=== PATIENT | female | born 1985 | race Caucasian/White ===

== ENCOUNTER 2016-06-17 17:44 | Outpatient (CLI) | payer OTHER | END 2016-06-17 18:40 | disposition home or self-care (01) | LOC: OBC SRH 17:44 → OB SRH 17:44 → OBC SRH 18:40 | DX: O36.8120 Decreased fetal movements, second trimester, not applicable or unspecified (principal); O99.89 Other specified diseases and conditions complicating pregnancy, childbirth and the puerperium; R10.2 Pelvic and perineal pain; Z3A.25 25 weeks gestation of pregnancy ==

== ENCOUNTER 2016-06-18 12:59 | Outpatient (CLI) | payer OTHER | END 2016-06-18 13:26 | disposition home or self-care (01) | LOC: OBC SRH 12:59 → OB SRH 13:26 → OBC SRH 13:26 | DX: O46.8X2 Other antepartum hemorrhage, second trimester (principal); Z3A.24 24 weeks gestation of pregnancy ==

== ENCOUNTER → 2016-08-29 19:49 | Outpatient (CLI) | payer OTHER ==
[~2016-08-29 19:49] MED LIST: PERCOCET1 TA1 PO
== END | disposition home or self-care (01) ==
LOC: OBC SRH 19:49 → OB SRH 20:08 → OBC SRH 20:50
PROC: 4A0HXCZ Measurement of Products of Conception, Cardiac Rate, External Approach (ICD-10-PCS; principal; 2016-08-29)
DX: O47.03 False labor before 37 completed weeks of gestation, third trimester (principal); Z3A.34 34 weeks gestation of pregnancy

== ENCOUNTER 2016-09-19 07:41 | Outpatient (CLI) | payer OTHER | END 2016-09-19 13:00 | disposition home or self-care (01) | LOC: OBC SRH 07:41 → OB SRH 07:45 → OBC SRH 13:00 | PROC: 4A1HXCZ Monitoring of Products of Conception, Cardiac Rate, External Approach (ICD-10-PCS; principal; 2016-09-19) | DX: O47.1 False labor at or after 37 completed weeks of gestation (principal); Z3A.37 37 weeks gestation of pregnancy ==

== ENCOUNTER 2016-09-24 17:57 | Outpatient (CLI) | payer OTHER | END 2016-09-24 19:05 | disposition home or self-care (01) | LOC: OBC SRH 17:57 → OB SRH 17:59 → OBC SRH 19:05 | PROC: 4A0HXCZ Measurement of Products of Conception, Cardiac Rate, External Approach (ICD-10-PCS; principal; 2016-09-24) | DX: O36.8130 Decreased fetal movements, third trimester, not applicable or unspecified (principal); O47.1 False labor at or after 37 completed weeks of gestation; Z3A.38 38 weeks gestation of pregnancy ==

== ENCOUNTER 2016-10-04 07:05 | Inpatient (IN) | payer OTHER ==
[~2016-10-04] VITALS: Ht 154.9 cm; Wt 94.8 kg
[2016-10-04 16:50] VITALS: BP 131/69
[2016-10-04 17:03] VITALS: BP 118/72
[2016-10-04 17:16] VITALS: BP 127/64
[2016-10-04 17:30] VITALS: BP 132/67
[2016-10-04 17:46] VITALS: BP 130/75
[2016-10-04 21:14] VITALS: BP 151/68
[2016-10-05] VITALS: BP 116/69
[2016-10-05 07:46] VITALS: BP 105/63
--- NOTE | 2016-10-05 10:56 | Provider's Discharge Care Plan ---
Problem, Goal, Plan Problem List 1. Vaginal delivery with potential for hemorrhage Goals: Improve disease control Instructions: Follow up as needed
--- NOTE | 2016-10-05 10:56 | Provider's Discharge Care Plan ---
Problem, Goal, Plan Problem List 1. Vaginal delivery with potential for hemorrhage Goals: Improve disease control Instructions: Follow up as needed
[2016-10-05 17:30] VITALS: BP 114/69
[2016-10-05] MEDS ORDERED: PERCOCET1 TA1 PO (18:27)
--- NOTE | 2016-10-05 18:40 | NUR ---
PATIENT DISCHARGED HOME WITH FAMILY AND NB. C/O PAIN IN LOW BACK SO MEDICATED WITH PO PAIN MEDS AND DR. HOOVER WAS HERE TO PRINT OUT RX FOR PT'S DISCHARGE. RX GIVEN TO PATIENT, AND DISCHARGE INSTRUCTIONS GIVEN AND EXPLAINED TO PATIENT, PATIENT VERBALIZES UNDERSTANDING OF DISCHARGE INSTRUCTIONS. BANDS VERIFIED WITH MOM AND BABY.
== END 2016-10-05 18:45 | disposition home or self-care (01) | DRG 560 ==
LOC: OB SRH 07:05
PROVIDERS: ADMIT Obstetrics & Gynecology
PROC: 10E0XZZ Delivery of Products of Conception, External Approach (ICD-10-PCS; principal; 2016-10-04)
DX: O77.0 Labor and delivery complicated by meconium in amniotic fluid (principal); Z3A.40 40 weeks gestation of pregnancy; Z37.0 Single live birth; O69.81X0 Labor and delivery complicated by cord around neck, without compression, not applicable or unspecified
CPT/HCPCS: 40012; 90074; 91162; 91163; 95059

== ENCOUNTER 2016-10-07 20:41 | Emergency (ER) | payer OTHER ==
--- NOTE | 2016-10-07 21:32 | ED NURSING NOTES ---
Clinical Report - Nurses [facility] [address] [place] [address] 10/07/2016 20:42 [id number] TRI[facility] Triage time 20:49 Oct 07 2016. Acuity: LEVEL 4. Chief Complaint: (Had a baby three days ago, now bilat breast pain, swelling and no drainage. Possible mastitis). 20:57 10/07/16. SEPSIS SCREEN: Sepsis Screen. Negative (no infection suspected/documented). JEREMIAH COMA SCORE: Jeremiah Coma Scale: 15- eyes open spontaneously (4); best verbal response- oriented x 4 (5); best motor response- obeys commands (6). --20:57 Felipa Flores R.N. 20:49 10/07/16. BP: 115/78 (regular adult cuff) taken on the left arm, while sitting. HR: 92. RR: 18. O2 saturation: 96% on room air. Temp: 97.9 F (oral). Pain level now: 410. --20:57 Felipa Flores R.N. Height/Length: 61 inches Per Patient. --20:51 Felipa Flores R.N.. Weight: 88.3 kg measured. BMI: 36.8. --20:53 Felipa Flores R.N. Medications None. --20:50 Felipa Flores R.N. Allergies Vicodine. --20:51 Felipa Flores R.N. History Arrived by private vehicle. Historian: patient. Accompanied by family. Primary physician (Dr Fletcher). This started today. She has had fever (100.1). Reports muscle aches. Treatment RIGHT OF WAY MANAGER: None. (Percocet 2048). PAST MEDICAL HX: Last normal menstrual period- just had baby three days ago. SOCIAL HX: Smoker- current status unknown. Occasional alcohol use; consumes wine. History of occasional drug use: marijuana. No infectious disease exposure. --20:57 Felipa Flores R.N. PROBLEMS: no known problems. ADDITIONAL SURGERIES: Kidney surgery. --20:51 Felipa Flores R.N. Interventions ID band on patient. To treatment room. --20:57 Felipa Flores R.N. PHYSICAL ASSESSMENT 20:58 10/07/16. Ambulatory to room. Patient gowned. ( Bilat breasts swollen, redness and pain at nipples). GENERAL / NEURO / PSYCH: Alert. Oriented X 4. Appears in no acute distress. HEENT: Pupils equal, round and reactive to light. No facial asymmetry noted. Mucous membranes are pink. RESPIRATORY: Respirations not labored. Chest nontender. Breath sounds within normal limits. CVS: Normal sinus rhythm noted. Capillary refill less than 2 seconds. Pulses within normal limits. GI / : Abdomen soft and nontender and normal bowel sounds. SKIN: Skin intact. Skin is warm. Normal skin turgor. --20:58 Felipa Flores R.N. NURSING PROGRESS NOTES 20:58 10/07/16. The plan of care for this patient has been created. Patient gowned. Head of bed elevated. Reassurance given. Two patient identifiers checked. Call light placed in reach. Side rails up x 1. Bed placed in lowest position. Brakes of bed on. Patient ready for evaluation- chart flagged and ED physician notified. --20:58 Felipa Flores R.N. DISPOSITION / DISCHARGE 21:40 10/07/16. BP: 123/81. HR: 94. RR: 15. O2 saturation: 98% on room air. Temp: deferred. Castanon-Moncada pain scale: 4/10. --21:41 Micki Barragan R.N. Condition at departure: improved and stable. No learning barriers present. Discharge instructions provided and reviewed with the patient. Patient verbalized understanding. Written instructions provided in Persian. The patient was discharged home and accompanied by parking meter installer. She left the Emergency Department ambulatory and via private vehicle. Congressional Representative driving. --21:41 Micki Barragan R.N. ( extensive teaching done with pt concerning blocked breast ducts and mastitis and signs and symptoms to watch for for when to return vs when to see PCP). --21:43 Micki Barragan R.N. Locked/Released at 10/07/2016 21:44 by Micki Barragan R.N.
--- NOTE | 2016-10-07 21:32 | ED CLINICAL REPORT ---
Clinical Report - Physicians/Mid Levels [facility] [address] [place] [address] 10/07/2016 20:42 Patient: MYNOR FARMER Time Seen: 20:53; initial patient contact. Arrived- By private vehicle. Historian- patient. HISTORY OF PRESENT ILLNESS Chief Complaint: SKIN RASH. This started today and is still present. It is described as painful. It has been located on the right and left breast. No cause has been identified. No recent medication. Similar symptoms previously: None. Recent medical care: Not recently seen/assessed. REVIEW OF SYSTEMS No fever, chills, nausea or vomiting. All systems otherwise negative, except as recorded above. PAST HISTORY Kidney surgery. Problems: no known problems. Surgeries: No history of previous surgery. Medications: None. Allergies: Vicodine. SOCIAL HISTORY Never smoker. Occasional alcohol use. History of drug use: marijuana. ADDITIONAL NOTES The nursing notes have been reviewed. PHYSICAL EXAM Vital Signs: 10/07/2016 20:49 BP: 115/78. HR: 92. RR: 18. O2 saturation: 96%. Temp: 97.9 F. Pain level now: 4/10. Have been reviewed as normal. Appearance: Alert. Oriented X3. No acute distress. Right Breast: Tenderness on exam. Milky nipple discharge. Mild, warm, erythematous, tender skin rash. Left Breast: Tenderness on exam. Milky nipple discharge. Mild, warm, erythematous, tender skin rash. Breast Exam: Kiln Furniture Saw Tender present ( and female RN). Normal contour. Nipples normal. Skin: Rash present on the right and left breast. The rash is erythematous. There is warmth and tenderness. Neuro: Oriented X 3. PROGRESS AND PROCEDURES Disposition: Discharged home in good condition. Condition: good. CLINICAL IMPRESSION Acute mastitis of the right and left breast associated with breast feeding. Abscess not present. INSTRUCTIONS Follow-up: Follow up with your doctor in about one day if not better. Call for an appointment. Screening today revealed the patient's blood pressure to be in the normal range. (Electronically signed by Carlos Eduardo Alvarez Dr. 10/08/2016 8:08)
--- NOTE | 2016-10-07 21:32 | ED NURSING NOTES ---
Clinical Report - Nurses [facility] [address] [place] [address] 10/07/2016 20:42 [id number] Triage time 20:49 Oct 07 2016. Acuity: LEVEL 4. Chief Complaint: (Had a baby three days ago, now bilat breast pain, swelling and no drainage. Possible mastitis). 20:57 10/07/16. SEPSIS SCREEN: Sepsis Screen. Negative (no infection suspected/documented). JEREMIAH COMA SCORE: Jeremiah Coma Scale: 15- eyes open spontaneously (4); best verbal response- oriented x 4 (5); best motor response- obeys commands (6). --20:57 Felipa Flores R.N. 20:49 10/07/16. BP: 115/78 (regular adult cuff) taken on the left arm, while sitting. HR: 92. RR: 18. O2 saturation: 96% on room air. Temp: 97.9 F (oral). Pain level now: 410. --20:57 Felipa Flores R.N. Height/Length: 61 inches Per Patient. --20:51 Felipa Flores R.N.. Weight: 88.3 kg measured. BMI: 36.8. --20:53 Felipa Flores R.N. Medications None. --20:50 Felipa Flores R.N. Allergies Vicodine. --20:51 Felipa Flores R.N. History Arrived by private vehicle. Historian: patient. Accompanied by family. Primary physician (Dr Fletcher). This started today. She has had fever (100.1). Reports muscle aches. Treatment AIRLINE RESERVATION AGENT: None. (Percocet 2048). PAST MEDICAL HX: Last normal menstrual period- just had baby three days ago. SOCIAL HX: Smoker- current status unknown. Occasional alcohol use; consumes wine. History of occasional drug use: marijuana. No infectious disease exposure. --20:57 Felipa Flores R.N. PROBLEMS: no known problems. ADDITIONAL SURGERIES: Kidney surgery. --20:51 Felipa Flores R.N. Interventions ID band on patient. To treatment room. --20:57 Felipa Flores R.N. PHYSICAL ASSESSMENT 20:58 10/07/16. Ambulatory to room. Patient gowned. ( Bilat breasts swollen, redness and pain at nipples). GENERAL / NEURO / PSYCH: Alert. Oriented X 4. Appears in no acute distress. HEENT: Pupils equal, round and reactive to light. No facial asymmetry noted. Mucous membranes are pink. RESPIRATORY: Respirations not labored. Chest nontender. Breath sounds within normal limits. CVS: Normal sinus rhythm noted. Capillary refill less than 2 seconds. Pulses within normal limits. GI / : Abdomen soft and nontender and normal bowel sounds. SKIN: Skin intact. Skin is warm. Normal skin turgor. --20:58 Felipa Flores R.N. NURSING PROGRESS NOTES 20:58 10/07/16. The plan of care for this patient has been created. Patient gowned. Head of bed elevated. Reassurance given. Two patient identifiers checked. Call light placed in reach. Side rails up x 1. Bed placed in lowest position. Brakes of bed on. Patient ready for evaluation- chart flagged and ED physician notified. --20:58 Felipa Flores R.N. DISPOSITION / DISCHARGE 21:40 10/07/16. BP: 123/81. HR: 94. RR: 15. O2 saturation: 98% on room air. Temp: deferred. Castanon-Moncada pain scale: 4/10. --21:41 Micki Barragan R.N. Condition at departure: improved and stable. No learning barriers present. Discharge instructions provided and reviewed with the patient. Patient verbalized understanding. Written instructions provided in Maori. The patient was discharged home and accompanied by wildlife enforcement major. She left the Emergency Department ambulatory and via private vehicle. Claims Adjuster Crop driving. --21:41 Micki Barragan R.N. ( extensive teaching done with pt concerning blocked breast ducts and mastitis and signs and symptoms to watch for for when to return vs when to see PCP). --21:43 Micki Barragan R.N. Locked/Released at 10/07/2016 21:44 by Micki Barragan R.N.
--- NOTE | 2016-10-07 21:32 | ED CLINICAL REPORT ---
Clinical Report - Physicians/Mid Levels [facility] [address] [place] [address] 10/07/2016 20:42 Patient: MYNOR FARMER Time Seen: 20:53; initial patient contact. Arrived- By private vehicle. Historian- patient. HISTORY OF PRESENT ILLNESS Chief Complaint: SKIN RASH. This started today and is still present. It is described as painful. It has been located on the right and left breast. No cause has been identified. No recent medication. Similar symptoms previously: None. Recent medical care: Not recently seen/assessed. REVIEW OF SYSTEMS No fever, chills, nausea or vomiting. All systems otherwise negative, except as recorded above. PAST HISTORY Kidney surgery. Problems: no known problems. Surgeries: No history of previous surgery. Medications: None. Allergies: Vicodine. SOCIAL HISTORY Never smoker. Occasional alcohol use. History of drug use: marijuana. ADDITIONAL NOTES The nursing notes have been reviewed. PHYSICAL EXAM Vital Signs: 10/07/2016 20:49 BP: 115/78. HR: 92. RR: 18. O2 saturation: 96%. Temp: 97.9 F. Pain level now: 4/10. Have been reviewed as normal. Appearance: Alert. Oriented X3. No acute distress. Right Breast: Tenderness on exam. Milky nipple discharge. Mild, warm, erythematous, tender skin rash. Left Breast: Tenderness on exam. Milky nipple discharge. Mild, warm, erythematous, tender skin rash. Breast Exam: Reverse Logistics Analyst present ( and female RN). Normal contour. Nipples normal. Skin: Rash present on the right and left breast. The rash is erythematous. There is warmth and tenderness. Neuro: Oriented X 3. PROGRESS AND PROCEDURES Disposition: Discharged home in good condition. Condition: good. CLINICAL IMPRESSION Acute mastitis of the right and left breast associated with breast feeding. Abscess not present. INSTRUCTIONS Follow-up: Follow up with your doctor in about one day if not better. Call for an appointment. Screening today revealed the patient's blood pressure to be in the normal range. (Electronically signed by Carlos Eduardo Alvarez Dr. 10/08/2016 8:08)
--- NOTE | 2016-10-08 08:08 | ED MED RECONCILIATION SUMMARY ---
Patient: MYNOR FARMER Medication Reconciliation Report [facility] VisitID: [id number] [address] [place] [place] [address] 31y, F Registration Date/Time: 10/07/2016 Weight: 88.3 kg Height/Length: 61 in. BMI: 36.8 ALLERGIES: Vicodine The patient's Home Medications are listed below: NONE. The source(s) of the original Home Medication information: Not obtained. The following Medications were given to the patient in the Emergency Department: None. The following Medications were prescribed to the patient: None.
--- NOTE | 2016-10-08 08:08 | ED MAR SUMMARY ---
..... Medication Administration Record [facility] [address] [place], [place] [id number] Patient: MYNOR FARMER Visit ID: [id number] 31y, F Weight: 88.3 kg Height/Length: 61 in BMI: 36.8 ALLERGIES: Vicodine
--- NOTE | 2016-10-08 08:08 | ED DISCHARGE INSTRUCTIONS ---
Patient: MYNOR FARMER General Instructions [facility] VisitID: [id number] [place] [address] 31y, F Registration Date/Time: 10/07/2016 Acute mastitis of the right and left breast associated with breast feeding. Abscess not present. INSTRUCTIONS Follow-up: Follow up with your doctor in about one day if not better. Call for an appointment. Screening today revealed the patient's blood pressure to be in the normal range. ADDITIONAL INFORMATION Mastitis Mastitis is a bacterial infection in the breast. It is most common in nursing mothers and is usually a result of small cracks in the nipple. The infection is treated with antibiotics. If treatment is delayed or if the infection is severe, a pocket of pus (abscess) can form. This requires minor surgery to drain the pus. Sometimes the infection can spread into the bloodstream causing a more severe illness with fever and chills. Home Care: 1) It is important to keep the milk flowing from the infected breast. Continue breast feeding from both breasts as usual. This will not hurt the baby. If this is too painful, use a breast pump to remove milk from the infected side. This can be fed to your baby or discarded. 2) Apply a warm compress (a heating pad, hot water bottle or towel soaked in hot water) to the infected breast several times per day. 3) After each feeding, express a small amount of breast milk and apply to the nipples. This lubricates the nipples and helps heal small cracks in the tissue. 4) Soap dries the skin and removes protective oils. When bathing, clean the breast with water only, do not use soap. 5) Take all of the antibiotics prescribed. 6) Wearing a supportive bra can help with the pain. 7) [id number] breast creams are not recommended for treatment or prevention of mastitis. Follow Up: Make an appointment with your doctor in the next week to be sure your infection is healing properly. Get Prompt Medical Attention if any of the following occur: -- Fever over 100.4 F (38.0 C) for more than 2 days of antibiotic treatment -- Shaking chills -- Increasing breast pain or firmness in the breast -- Spreading area of redness You have been given the following additional information: Mastitis (Electronically signed by Carlos Eduardo Alvarez Dr. 10/08/2016 8:08)
--- NOTE | 2016-10-08 08:08 | ED MED RECONCILIATION SUMMARY ---
Patient: MYNOR FARMER Medication Reconciliation Report [facility] VisitID: [id number] [address] [place] [address] 31y, F Registration Date/Time: 10/07/2016 Weight: 88.3 kg Height/Length: 61 in. BMI: 36.8 ALLERGIES: Vicodine The patient's Home Medications are listed below: NONE. The source(s) of the original Home Medication information: Not obtained. The following Medications were given to the patient in the Emergency Department: None. The following Medications were prescribed to the patient: None.
--- NOTE | 2016-10-08 08:08 | ED MAR SUMMARY ---
..... Medication Administration Record [facility] [address], [place] [id number] Patient: MYNOR FARMER Visit ID: [id number] 31y, F Weight: 88.3 kg Height/Length: 61 in BMI: 36.8 ALLERGIES: Vicodine
== END 2016-10-07 21:37 | disposition home or self-care (01) ==
LOC: ED SRH 20:41
DX: N61.0 Mastitis without abscess (principal)